=== PATIENT | female | born 1980 | race Caucasian/White ===

== ENCOUNTER 2016-08-10 13:51 | Emergency (ER) | payer OTHER ==
[~2016-08-10] VITALS: Ht 172.7 cm; Wt 93.4 kg
[~2016-08-10 13:51] MED LIST: NORCO 5-325 TA1 EACH PO
--- NOTE | 2016-08-10 14:36 | ED EYE COMPLAINT ---
History of Present Illness General Chief Complaint: Eye Problems Stated Complaint: RED/ITCHY SWOLLEN RT EYE Source: patient, old records Exam Limitations: no limitations Vital Signs & Intake/Output Vital Signs & Intake/Output Vital Signs Date Time Temp Pulse Resp B/P Pulse O2 O2 Flow FiO2 Ox Delivery Rate 08/10 1512 98.3 69 16 118/79 100 Room Air 08/10 1419 99 Room Air 08/10 1356 97.1 77 16 134/84 97 Room Air Allergies Coded Allergies: prochlorperazine (From Compazine) (Severe, RIGIDITY 02/10/16) Reconcile Medications Amoxicillin/Potassium Clav (Augmentin 875-125 Tablet) 875 MG-125 MG TABLET 1 TAB PO BID ANTIBIOTIC, INFECTION (Reported) Moxifloxacin Hydrochloride (Vigamox) 0.5 % DROPS 1 GTT OPH TID ANTIBIOTIC, INFECTION (Reported) Triage Note: PT STATES SHE WENT TO THE WALK IN ON MONDAY FOR PAINFULL RED EYE. PT STATES THEY PUT HER ON ABX AND STATES HER EYE IS GETTING WORSE. Triage Nurses Notes Reviewed? yes Onset: Abrupt Duration: day(s): (4), constant Timing: recent history Injury Environment: home Severity: moderate, severe Severity Numbers: 8 No Modifying Factors: none Right Eye Associated Symptoms: pain : No Patient currently breastfeeds: No HPI: 35-year-old female with no medical history presents to emergency room for evaluation complaining of an atraumatic right red painful eye for the past 4 days. She states she went to an urgent care on the symptoms began and was prescribed at about it drops are states it is getting more painful and worse. She denies any discharge from my. She states that bright lights make the symptoms worse as does bending over. She is complaining of moderate to severe aching pain in her right eye associated blurry vision she does not work contacts or glasses. She denies any left eye association, she denies any swelling or redness around her eye no headache fever or chills no recent trauma or known injury (JUSTIN CARDENAS) Past History Travel History Traveled to [place] past 21 day No Medical History Any Pertinent Medical History? see below for history Renal: nephrolithiasis Surgical History Surgical History: non-contributory Psychosocial History Services at Home None What is your primary language Icelandic Tobacco Use: Current Daily Use Daily Tobacco Use Amount/Type: => 5 Cigarettes daily ETOH Use: denies use Illicit Drug Use: denies illicit drug use Family History Hx Contributory? No (JUSTIN CARDENAS) Review of Systems Review of Systems Constitutional: Reports: see HPI. All Other Systems: Reviewed and Negative Comments Review of systems: See HPI, All other systems negative. Constitutional, no chills no fever, no malaise HEENT: no sore throat no congestion Cardiovascular: No chest pain , no palpitation Skin, no rashes, no change in skin Respiratory: No dyspnea no cough no sputum GI: NO N/V/D : No dysuria No hematuria, Muscle skeletal: No joint pain, , no back pain, no neck pain, Neurologic: No numbness no headache Psych: No stress Heme/endocrine: No bruising no bleeding Immunology: No lymphadenopathy (JUSTIN CARDENAS) Physical Exam General Appearance: well developed/nourished, no apparent distress, alert, awake Right (mm Hg): 31 General Inspection: normal inspection Eyelid: normal inspection Conjunctiva/Sclera: normal inspection Cornea: normal inspection EOM: intact Pupil: normal accommodation, normal pupil, PERRL General Inspection: normal inspection Eyelid: normal inspection, everted for exam Conjunctiva/Sclera: injected, NO CILIARY FLUSH Cornea: normal inspection, examined w/fluorescein, NO ABRASION, EOM: intact Pupil: normal accommodation, normal pupil, PERRL Physical Exam Comments: Well-developed well-nourished patient in no apparent distress. HEENT: Atraumatic, extraocular motion intact Neck: Supple, FROM, Back: FROM Cardiovascular: Regular rate and rhythms no murmurs rubs or gallops, Respiratory: No respiratory distress. Patient speaking in full complete sentences. Breath sounds clear to auscultation bilaterally: NO W/R/R Extremities: full range of motion Neuro: Alert and oriented x3 Skin: Warm & dry;No appreciable rash on exposed skin Psych: Mood affect normal, normal memory normal judgment. (JUSTIN CARDENAS) Progress Differential Diagnosis: corneal abrasion, corneal foreign body, conjunctivitis, detached retina, glaucoma, IRITIS Plan of Care: The eye was anesthetized with tetracaine drops with immediate improvement. Eye was fluorescein stained no abrasion case was discussed with Dr. TOLENTINO who evaluated the patient, 1500 CASE WAS D/W DR MARADIAGA WHO ADVISED TO HAVE THE PT COME STRAIGHT TO HIS OFFICE IN [place] AT THIS TIME, ADVISED NO ATROPINE GTTS OR SHIELD. Discussed with the patient plan of care she feels comfortable with going to his office at this time she states she will go straight there. I stressed with her the importance of following up at this time. The patient is aware of DR CONNER OFFICE (JUSTIN CARDENAS) Departure Departure Time of Disposition: 1503 Disposition: HOME OR SELF CARE Condition: Stable Clinical Impression Primary Impression: Red eye Referrals: TOÑA CRAIG,RIN (PCP/Family) HIREN CRAIG,HUGO Gonzalez Additional Instructions: GO STRAIGHT TO DR CONNER OFFICE Departure Forms: Customer Survey General Discharge Information (JUSTIN CARDENAS) PA/CONCRETE BLOCK LAYER Co-Sign Statement Statement: ED Attending supervision documentation- [] I saw and evaluated the patient. I have also reviewed all the pertinent lab results and diagnostic results. I agree with the findings and the plan of care as documented in the PA's/CONCRETE BLOCK LAYER's documentation. [X] I have reviewed the ED Record and agree with the PA's/CONCRETE BLOCK LAYER's documentation. [] Additions or exceptions (if any) to the PAs/CONCRETE BLOCK LAYER's note and plan are summarized below: [] (RANDA CRAIG,MICHAEL)
[2016-08-10] MEDS ORDERED: VIGAMOX3 ML OPH (14:44)
[2016-08-10] MEDS ORDERED: AUGMENTIN 875-1 EACH PO (14:44)
[2016-08-10 15:12] VITALS: BP 118/79
== END 2016-08-10 15:12 ==
LOC: ERH 13:51
DX: H57.8 Other specified disorders of eye and adnexa (principal)

== ENCOUNTER → 2017-08-24 | Day surgery (SDC) | payer OTHER ==
[~2017-08-24] VITALS: Ht 172.7 cm; Wt 90.7 kg
[~2017-08-24] MED LIST changes: +AUGMENTIN 875-1 EACH PO; +VIGAMOX3 ML OPH
--- NOTE | 2017-08-28 15:10 | Operative Report ---
Operative/Inv Procedure Report Surgery Date: 08/24/17 Name of Procedure: Removal of On from left arm Pre-Operative Diagnosis: Menorrhagia Post-Operative Diagnosis: Same Estimated Blood Loss: less than 50ml Surgeon/Diaphragm Builder: Dagmar Dillon MD Anesthesia: moderate sedation, block Operative/Procedure Note Note: Patient was taken the operating room placed on position with the left arm extended and the patient had been placed under anesthesia was adequate for surgery the arm was extended was prepped draped sterile fashion block was placed underneath the On which was underneath the patient's left arm eyes stab incision was made the base of On it was bluntly dissected and removed skin edges were reapproximated using Mastisol and Steri-Stripswas apparent sterile dressing was applied and awakened from anesthesia and transferred recovery room awake alert counts correct the Was sent to pathology
== END ==
LOC: STS 02:27
DX: Z30.46 Encounter for surveillance of implantable subdermal contraceptive (principal); N94.6 Dysmenorrhea, unspecified; F17.200 Nicotine dependence, unspecified, uncomplicated
CPT/HCPCS: 81025; J2250